=== PATIENT | female | born 2005 | race Two or more races ===

== ENCOUNTER 2025-09-03 22:06 | Emergency (ER) | payer OTHER ==
[2025-09-04] MEDS ORDERED: CEFTRIAXONE SODIUM 1,000 MG VIAL IM STA (00:57)
[2025-09-04] MEDS ORDERED: KETOROLAC TROMETHAMINE 10 MG TABLET PO STA (00:57)
[2025-09-04] MEDS ORDERED: LIDOCAINE HCL 1% 10ML VIAL ONE (00:59)
[2025-09-04] MEDS ORDERED: CEFTRIAXONE SODIUM 1,000 MG VIAL ONE (00:59)
[2025-09-04] MEDS ORDERED: KETOROLAC TROMETHAMINE 10 MG TABLET PO ONE (00:59)
[2025-09-04] MEDS ORDERED: ORASEP SPRAY30 ML MM ×2 (01:00→01:01)
[2025-09-04] MEDS ORDERED: ZITHROMAX500 MG PO ×2 (01:00→01:01)
[2025-09-04] MEDS ORDERED: MELOXICAM15 MG PO ×2 (01:01)
[2025-09-04 01:16] VITALS: BP 105/60; O2SAT 100
== END 2025-09-04 01:17 ==
LOC: ER 22:06
DX: J02.8 Acute pharyngitis due to other specified organisms (principal)